=== PATIENT | female | born 1950 | race Caucasian/White ===

== ENCOUNTER → 2020-04-16 12:35 | Outpatient (CLI) | payer MEDICARE, OTHER, SELFPAY | PROVIDERS: PCP Student in an Organized Health Care Education/Training Program; Referring Provider Student in an Organized Health Care Education/Training Program; Visit Provider Student in an Organized Health Care Education/Training Program | DX: M85.832 Other specified disorders of bone density and structure, left forearm (principal); Z78.0 Asymptomatic menopausal state | CPT/HCPCS: 77080 ==

== ENCOUNTER → 2020-05-12 08:59 | Outpatient (CLI) | payer MEDICARE, OTHER, SELFPAY ==
--- NOTE | 2020-05-12 09:02 | DI.MG.S_ITS ---
BILATERAL DIGITAL SCREENING MAMMOGRAM 3D/2D WITH CAD: 05/12/2020 CLINICAL: Routine screening. Comparison is made to exams dated: 05/28/2018 mammogram - [facility], 11/04/2016 mammogram, and 12/17/2012 mammogram - [facility]. There are scattered fibroglandular elements in both breasts. Current study was also evaluated with a Computer Aided Detection (CAD) system. No significant masses, calcifications, or other findings are seen in either breast. There has been no significant interval change. IMPRESSION: NEGATIVE There is no mammographic evidence of malignancy. A 1 year screening mammogram is recommended. This exam was interpreted at Station ID: [id number]. NOTE: For mammograms, a report in lay terms will be sent to the patient. Approximately 15% of breast malignancies will not be visualized mammographically. In the management of a palpable breast mass, a negative mammogram must not discourage biopsy of a clinically suspicious lesion. Electronically Signed By: Ernie erazo/dominick:05/14/2020 07:55:11 letter sent: Normal Exam ACR BI-RADS Category 1: Negative [id number]
== END ==
PROVIDERS: PCP Student in an Organized Health Care Education/Training Program; Referring Provider Student in an Organized Health Care Education/Training Program; Visit Provider Student in an Organized Health Care Education/Training Program
DX: Z12.31 Encounter for screening mammogram for malignant neoplasm of breast (principal)
CPT/HCPCS: 77063; 77067

== ENCOUNTER → 2021-02-28 12:39 | Outpatient (CLI) | payer MEDICARE, OTHER, SELFPAY ==
--- NOTE | 2021-02-28 12:40 | DI.MRI.S_ITS ---
PROCEDURE: MR FOOT RT WO/W CON INDICATIONS: Lesion of plantar nerve, right lower limb TECHNIQUE: Noncontrast sagittal T1 spin echo and T2 fast spin echo with fat saturation, long-axis T1 spin echo and STIR, short-axis T1 spin echo with and without fat saturation, and short-axis T2 fast spin echo with fat saturation. After the administration of contrast, sagittal, long axis, and short axis T1 spin echo with fat saturation through the forefoot. COMPARISON: None. FINDINGS: Image quality: Excellent. Bones and joints: No acute trabecular bone injury. There is mild hallux valgus. Moderate degenerative changes are seen at the 1st metatarsophalangeal joint with associated cystic changes in the 1st metatarsal head and mild soft tissue bunion. Mild scattered degenerative changes are seen in the interphalangeal joints of the toes. Degenerative changes are also seen in the tarsometatarsal joints and the navicular cuneiform articulations. Mild degenerative changes are seen in the hallux sesamoids, which are not displaced. No intraosseous lesions. Soft tissues: Nonspecific soft tissue edema is seen at the dorsum of the foot. No enhancing lesions between the metatarsal heads to suggest Holley's neuromas. No rim-enhancing intermetatarsal bursal fluid collections are present. Mildly decreased T1 signal is seen plantar to the 2nd, 4th, and 5th metatarsal heads, consistent with chronic pressure related changes. The visualized plantar foot muscles demonstrate normal signal and bulk. Visualized flexor and extensor tendons appear intact, without tenosynovitis. A small nonenhancing 9 mm ganglion cyst is seen plantar to the proximal 3rd metatarsal. IMPRESSION: 1. No Holley's neuroma identified. 2. Hallux valgus with moderate degenerative changes at the 1st metatarsophalangeal joint. 3. Mild nonspecific soft tissue edema at the dorsum of the foot. 4. Small lobular ganglion cyst plantar to the proximal 3rd metatarsal. Dictated by: Tristen Dempsey M.D. on 02/28/2021 at 13:54 Approved by: Tristen Dempsey M.D. on 02/28/2021 at 14:04
== END ==
PROVIDERS: PCP Student in an Organized Health Care Education/Training Program; Referring Provider Podiatrist; Visit Provider Podiatrist
DX: M79.671 Pain in right foot (principal); G57.61 Lesion of plantar nerve, right lower limb; M20.11 Hallux valgus (acquired), right foot; R60.0 Localized edema; M67.471 Ganglion, right ankle and foot
CPT/HCPCS: 73720

== ENCOUNTER → 2024-08-01 09:47 | Outpatient (CLI) | payer MEDICARE, SELFPAY ==
[2024-08-01 10:42] LABS: Add Manual Diff / Slide Review NO; Basophils Absolute Auto 100 /uL (0-100); Basophils Percent Auto 1.2 % (0-2); Eosinophils Absolute Auto 100 /uL (0-450); Eosinophils Percent Auto 1.4 % (2-4); Hematocrit 37.6 % (36-46); Hemoglobin 12.6 g/dL (12.0-16.0); Lymphocytes Absolute Auto 1900 /uL (1100-4500); Lymphocytes Percent Auto 40.7 % (25-40); Mean Corpuscular HGB Conc 33.4 % (30-36); Mean Corpuscular Hemoglobin 28.3 PG (26-34); Mean Corpuscular Volume 84.8 fL (80-100); Monocytes Absolute Auto 300 /uL (0-900); Monocytes Percent Auto 5.7 % (3-14); Neutrophils Absolute Auto 2400 /uL (1500-7000); Platelet Count 275 X10^3/uL (150-400); Red Blood Cell Count 4.44 X10^6/uL (4.0-5.2); Red Cell Distribution Width 13.7 % (11.6-14.8); White Blood Cell Count 4.7 X10^3/uL (4.5-11.0)
[2024-08-01 11:06] LABS: Alanine Aminotransferase 29 IU/L (<35); Albumin 4.4 g/dL (3.5-5.0); Albumin Globulin Ratio 1.7 (1.0-2.8); Alkaline Phosphatase 34 U/L (38-126); Aspartate Aminotransferase 28 IU/L (14-36); BUN Creatinine Ratio 48.4 (6-22); Bilirubin Total 0.4 mg/dL (0.2-1.3); Blood Urea Nitrogen 31 mg/dL (7-17); Calcium 10.3 mg/dL (8.4-10.2); Carbon Dioxide 28 mmol/L (22-32); Chloride 102 mmol/L (98-107); Cholesterol 235 mg/dL (140-199); Estimated Glomerular Filt Rate > 60 mL/min (>60); Globulin 2.6 g/dL (1.7-4.1); Glucose 99 mg/dL (80-110); HDL Cholesterol 75 mg/dL (40-60); HEMOLYSIS < 15 (0-50); LDL Cholesterol Calculated 137 mg/dL (<100); Potassium 4.3 mmol/L (3.4-5.1); Sodium 138 mmol/L (137-145); Triglycerides 115 mg/dL (35-150)
[2024-08-01 11:11] LABS: HEMOLYSIS < 15 (0-50); Iron 110 ug/dL (37-170)
[2024-08-01 11:22] LABS: Percent Iron Saturation 36 % (15-50); Total Iron Binding Capacity 308 ug/dL (265-497); Transferrin 268 mg/dL (206-381)
[2024-08-01 11:24] LABS: Vitamin D 25 Hydroxy (D3) 39.1 ng/mL (30.0-100.0)
[2024-08-01 11:41] LABS: Ferritin 36 ng/mL (11-264)
[2024-08-02 20:08] LABS: Calcium 10.1 mg/dL (8.7-10.3); Parathyroid Hormone, Intact 54 pg/mL (15-65)
== END ==
PROVIDERS: PCP Family Medicine; Referring Provider Family Medicine; Visit Provider Family Medicine
DX: E83.52 Hypercalcemia (principal); I10 Essential (primary) hypertension; G47.33 Obstructive sleep apnea (adult) (pediatric); Z13.6 Encounter for screening for cardiovascular disorders
CPT/HCPCS: 36415; 80053; 80061; 82306; 82310; 82728; 83540; 83550; 83970; 85025

== ENCOUNTER → 2024-09-28 09:14 | Outpatient (CLI) | payer MEDICARE, SELFPAY ==
[2024-09-28 10:47] LABS: Alanine Aminotransferase 32 IU/L (<35); Albumin 4.5 g/dL (3.5-5.0); Albumin Globulin Ratio 1.6 (1.0-2.8); Alkaline Phosphatase 32 U/L (38-126); Aspartate Aminotransferase 32 IU/L (14-36); BUN Creatinine Ratio 32.3 (6-22); Bilirubin Total 0.4 mg/dL (0.2-1.3); Blood Urea Nitrogen 20 mg/dL (7-17); Calcium 10.9 mg/dL (8.4-10.2); Carbon Dioxide 30 mmol/L (22-32); Chloride 101 mmol/L (98-107); Estimated Glomerular Filt Rate > 60 mL/min (>60); Globulin 2.8 g/dL (1.7-4.1); Glucose 95 mg/dL (70-99); HEMOLYSIS < 15 (0-50); Potassium 4.3 mmol/L (3.4-5.1); Sodium 136 mmol/L (137-145); Total Protein 7.3 g/dL (6.3-8.2)
[2024-09-28 11:17] LABS: Ferritin 58 ng/mL (11-264)
== END ==
PROVIDERS: PCP Family Medicine; Referring Provider Family Medicine; Visit Provider Family Medicine
DX: E83.52 Hypercalcemia (principal); I10 Essential (primary) hypertension
CPT/HCPCS: 36415; 80053; 82728

== ENCOUNTER → 2024-09-30 09:04 | Outpatient (CLI) | payer MEDICARE, SELFPAY ==
[2024-09-30 10:19] LABS: Calcium 10.3 mg/dL (8.4-10.2)
[2024-09-30 10:38] LABS: T4 Total Thyroxine 7.91 ug/dL (5.5-11.0)
[2024-09-30 10:51] LABS: Thyroid Stimulating Hormone 2.32 uIU/mL (0.47-4.68)
[2024-10-01 09:09] LABS: Parathyroid Hormone Int 45 pg/mL (15-65)
[2024-10-01 21:11] LABS: Anti Thyroglobulin Antibody <1.0 IU/mL (0.0-0.9); Thyroid Peroxidase Antibodies 12 IU/mL (0-34)
== END ==
PROVIDERS: PCP Family Medicine; Referring Provider Family Medicine; Visit Provider Family Medicine
DX: E83.52 Hypercalcemia (principal); E61.1 Iron deficiency; I10 Essential (primary) hypertension; G47.33 Obstructive sleep apnea (adult) (pediatric)
CPT/HCPCS: 36415; 82310; 83970; 84436; 84443; 84481; 86376; 86800

== ENCOUNTER → 2024-10-12 06:46 | Outpatient (CLI) | payer MEDICARE, SELFPAY ==
--- NOTE | 2024-10-12 06:47 | DI.US.S_ITS ---
PROCEDURE: US THYROID INDICATIONS: Hypercalcemia, [place], iron def., HTN TECHNIQUE: Real-time scanning was performed of the thyroid gland, with image documentation. COMPARISON: None. FINDINGS: Thyroid: Right lobe measures 4.9 x 1.6 x 2.2 cm. Left lobe measures 5.2 x 1.9 x 1.6 cm. Isthmus is 0.4 cm thick. Echotexture is heterogeneous. Nodule number: 1 Location: Right inferior Size: 1.2 x 1.0 x 0.7 cm. Composition: Predominantly solid Echogenicity: Hypoechoic Shape: wider than tall. Margins: Smooth Echogenic foci: Punctate echogenic foci Total points: 7 ACR TI-RADS category: TI-RADS 5 Nodule number: 2 Location: Left inferior Size: 1.4 x 1.1 x 1.1 cm. Composition: Predominantly solid Echogenicity: Hypoechoic Shape: wider than tall. Margins: Lobulated Echogenic foci: Punctate echogenic foci Total points: 9 ACR TI-RADS category: TI-RADS 5 There is a 0.6 x 0.7 x 0.5 centimeter nodule at the posterior-inferior margin of the right lobe of the thyroid gland that may represent parathyroid gland or parathyroid adenoma. IMPRESSION: High suspicious (TI-RADS 5) 1.2 x 1.0 x 0.7 centimeter right thyroid nodule and 1.4 x 1.1 x 1.1 centimeter left thyroid nodule. Recommend fine needle aspiration based on criteria outlined below. 0.6 x 0.7 x 0.5 centimeter parathyroid gland or parathyroid adenoma at the posterior-inferior margin of the right thyroid. Recommend multiphase CT parathyroid scan. ACR TI-RADS definitions and recommendations: TI-RADS 1 (benign): 0 points. FNA not needed. TI-RADS 2 (not suspicious): 2 points. FNA not needed. TI-RADS 3: 3 points. * FNA if 2.5 cm or larger, follow up if 1.5 cm or larger (at 1, 3, and 5 years). TI-RADS 4: 4-6 points. * FNA if 1.5 cm or larger, follow up if 1 cm or larger (at 1, 2, 3, and 5 years). TI-RADS 5: 7 points or more. * FNA if 1 cm or larger, follow up if 0.5 cm or larger (every year for 5 years). Dictated by: Kaylin Roberto MD, PhD on 10/12/2024 at 9:53 Approved by: Kaylin Roberto MD, PhD on 10/12/2024 at 10:00
== END ==
PROVIDERS: PCP Family Medicine; Referring Provider Family Medicine; Visit Provider Family Medicine
DX: E04.2 Nontoxic multinodular goiter (principal); E83.52 Hypercalcemia; E61.1 Iron deficiency; I10 Essential (primary) hypertension; G47.33 Obstructive sleep apnea (adult) (pediatric); E87.8 Other disorders of electrolyte and fluid balance, not elsewhere classified
CPT/HCPCS: 76536

== ENCOUNTER → 2024-10-21 07:38 | Outpatient (CLI) | payer MEDICARE, SELFPAY ==
--- NOTE | 2024-10-21 07:39 | DI.CT.S_ITS ---
PROCEDURE: CT SOFT TISSUE NECK WO/W CON INDICATIONS: abnormal thyroid ultrasound TECHNIQUE: Before and after the administration of intravenous contrast, 2.0 mm axial sections acquired through the neck and down to the ramon. Additional 2.0 mm coronal and sagittal reformats were generated of the contrast enhanced images. For radiation dose reduction, the following was used: automated exposure control. COMPARISON: [facility], [place], US THYROID, 10/12/2024, 7:05. FINDINGS: Image quality: Excellent. Parathyroid/thyroid: There is no soft tissue density posterior to the right thyroid lobe demonstrating enhancement characteristics of parathyroid adenoma. Lymph nodes: No enlarged lymph nodes seen throughout the neck. Vessels: Visualized vasculature appears patent. Neck spaces: The oropharynx, nasopharynx, and pharynx demonstrate no mucosal lesions. The vocal cords, false vocal cords, pyriform sinuses, epiglottis, vallecula, and tongue base all appear normal. Extramucosal spaces appear unremarkable. Glands: The parotid and submandibular glands appear normal. Miscellaneous: Visualized lungs appear clear. Superficial soft tissues appear normal. Bones: No suspicious bony lesions. Visualized sinuses and mastoids appear unremarkable. IMPRESSION: No definitive finding of parathyroid adenoma. Dictated by: Tika Rosado M.D. on 10/22/2024 at 16:22 Approved by: Tika Rosado M.D. on 10/22/2024 at 16:25
== END ==
LOC: CT 07:39
PROVIDERS: PCP Family Medicine; Referring Provider Family Medicine; Visit Provider Family Medicine
DX: R93.89 Abnormal findings on diagnostic imaging of other specified body structures (principal)
CPT/HCPCS: 70492; Q9967

== ENCOUNTER → 2024-10-25 09:11 | Outpatient (CLI) | payer MEDICARE, SELFPAY ==
--- NOTE | 2024-10-25 09:41 | DI.ECHO.S_ITS ---
[facility] : : [address] : : [place] : : [address] : : Phone: [phone] Echocardiogram Report + + :Name: CARMEN CANDELARIA Study Date: 10/25/2024 Height: 63 in : :Hospital ReadingLocation: Weight: 202 lb : : Gender: Female BSA: 1.9 m2 : :: 1950 Age: 73 yrs BP: 161/69 mmHg: :Reason For Study: Hypertension : :Ordering Physician: JEFF, : :WENDY Lord Performed By: Khadra Taylor : :Referring: WENDY AGUILAR R : + + Interpretation Summary 1) Normal left ventricular thickness, size, wall motion, and systolic function (EF 60-65%). 2) Normal right ventricular size and function. 3) No significant valvular abnormalities. 4) No prior Echo available for comparison. Procedure: A two-dimensional transthoracic echocardiogram with color flow and Doppler was performed. The study quality was technically adequate. There is no prior echocardiogram noted for this patient. The heart rate ranged between 48-56 bpm during the study. Left Ventricle: The left ventricle is normal in size and wall thickness. The ejection fraction is estimated to be 60-65%. Left ventricular systolic function appears normal without focal wall motion abnormalities. Diastolic function could not be accurately assessed due to unobtainable data. Right Ventricle: The right ventricle grossly appears normal in size with probable normal systolic function. Atria: The left atrium is moderately dilated. Right atrial size is normal. The interatrial septum grossly appears intact with no obvious evidence for an atrial septal defect. Mitral Valve: The mitral valve is grossly normal. There is trace mitral regurgitation. Aortic Valve: The aortic valve is trileaflet. The aortic valve opens well. There is no aortic valve stenosis. There is no aortic regurgitation. Tricuspid Valve: The tricuspid valve leaflets are thin and pliable. There is a trace or physiologic amount of tricuspid regurgitation. Pulmonic Valve: The pulmonic valve leaflets are thin and pliable; valve motion is normal. There is a trace or physiologic amount of pulmonic regurgitation. Great Vessels: The aortic root is normal size. The ascending aorta is normal in size. The aortic arch is normal in size. The IVC is of normal diameter and collapses greater than 50% with a sniff. This suggests a low right atrial pressure of 3 mm Hg. Pericardium/ Pleura There is no pericardial effusion. There is no pleural effusion. MMode/2D Measurements & Calculations LVIDd: 5.2 cm LVOT diam: 2.2 cm LVIDs: 2.8 cm Ao root diam: 2.8 cm FS: 47.1 % asc Aorta Diam: 2.9 cm EPSS: 0.35 cm Ao Arch Diam (Prox Trans): 2.5 cm IVSd: 0.78 cm LVPWd: 0.71 cm LV huynh. diameter/BSA (cm/m^2): 2.7 LV sys. diameter/BSA (cm/m^2): 1.4 LA A2 area: 23.4 cm2 RA long axis: 4.7 cm LA A4 area: 19.1 cm2 RA area: 12.6 cm2 LA length (vol): 4.8 cm RA vol: 28.7 ml LA vol: 78.8 ml RA : 14.8 ml/m2 LA vol index: 40.6 ml/m2 IVC diam: 1.4 cm TAPSE: 2.5 cm Doppler Measurements & Calculations Ao V2 max: 156.4 cm/sec LVOT Max Gunnar: 89.4 cm/sec Ao V2 mean: 106.2 cm/sec LV V1 max P.2 mmHg Ao max P.8 mmHg LV V1 VTI: 22.4 cm Ao mean P.1 mmHg YASEMIN(I,D): 2.0 cm2 Ao V2 VTI: 41.2 cm YASEMIN(V,D): 2.1 cm2 sev ratio: 0.54 YASEMIN indexed to BSA (cm^2/m^2): 1.0 MV E max gunnar: 86.0 cm/sec PA V2 max: 81.0 cm/sec MV A max gunnar: 104.9 cm/sec PA V2 mean: 61.2 cm/sec MV E/A: 0.82 PA mean P.6 mmHg Med Peak E' Gunnar: 6.9 cm/sec PA pr(Accel): 10.5 mmHg E/E' med: 12.5 Lat Peak E' Gunnar: 7.2 cm/sec E/E' lat: 12.0 E/e' average: 12.3 MV dec time: 0.29 sec SV(LVOT): 83.5 ml Reading Physician:05:13 PM
== END ==
PROVIDERS: PCP Family Medicine; Referring Provider Family Medicine; Visit Provider Family Medicine
DX: I10 Essential (primary) hypertension (principal); G47.33 Obstructive sleep apnea (adult) (pediatric)
CPT/HCPCS: 93306

== ENCOUNTER → 2024-10-31 09:03 | Outpatient (CLI) | payer MEDICARE, SELFPAY ==
[2024-10-31 10:23] LABS: Alanine Aminotransferase 25 IU/L (<35); Albumin 4.4 g/dL (3.5-5.0); Albumin Globulin Ratio 1.6 (1.0-2.8); Alkaline Phosphatase 36 U/L (38-126); Aspartate Aminotransferase 28 IU/L (14-36); BUN Creatinine Ratio 31.1 (6-22); Bilirubin Total 0.3 mg/dL (0.2-1.3); Blood Urea Nitrogen 19 mg/dL (7-17); Calcium 10.4 mg/dL (8.4-10.2); Carbon Dioxide 27 mmol/L (22-32); Chloride 103 mmol/L (98-107); Estimated Glomerular Filt Rate > 60 mL/min (>60); Globulin 2.7 g/dL (1.7-4.1); Glucose 95 mg/dL (70-99); HEMOLYSIS < 15 (0-50); Potassium 4.7 mmol/L (3.4-5.1); Sodium 137 mmol/L (137-145); Total Protein 7.1 g/dL (6.3-8.2)
== END ==
PROVIDERS: PCP Family Medicine; Referring Provider Family Medicine; Visit Provider Family Medicine
DX: E83.52 Hypercalcemia (principal)
CPT/HCPCS: 36415; 80053

== ENCOUNTER → 2024-11-09 13:22 | Outpatient (CLI) | payer MEDICARE, SELFPAY ==
--- NOTE | 2024-11-09 | PATH_ITS ---
Note [facility] Accession Number: [id number] TESTS RESULT FLAG UNITS REF RANGE LAB Clinician Provided Cytology Information No. of containers..01 Other (Miscellaneous) No. of containers..00 Previously Prepared Cytology Slide Source: RIGHT THYROID NODULE DIAGNOSIS: RIGHT THYROID NODULE NEGATIVE FOR MALIGNANT CELLS. BETHESDA CATEGORY II. SPECIMEN CONSISTS OF SCANT, BENIGN FOLLICULAR CELLS, RARE HEMOSIDERIN-LADEN MACROPHAGES, ABUNDANT COLLOID, AND BLOOD. THIS PATTERN IS MOST CONSISTENT WITH FOLLICULAR NODULAR DISEASE. Pathologist ICD10: 01 E04.1 Signed out by: Evelina Shafer MD, Pathologist NPI- [id number] Performed by: Celi Jacome, Cotton Gin Yard Supervisor ([facility]) Gross description: 30 CC, RED, HAZY RECEIVED IN WHITE CAP CYTOLYT CONTAINER. RECEIVED 5 DRY FIXED SLIDES IN 2 SLIDE COFFINS. RECEIVED 5 ALCOHOL FIXED SLIDES IN 2 GREEN CAP COFFINS. RECEIVED 1 RNA VIAL. : 01/28/25 RZ /RZA 11/10/2024 1235 Local FLAG LEGEND: L-Low Normal,H-High Normal,LL-Alert Low,HH-Alert High <-Panic Low,>-Panic High,A-Abnormal,AA-Critical Abnormal Performed at: 01 =Z [employer], [place] [address] Be Oconnell MD, Specimen Comment: [id number] Performed at: 01 [facility] [address] [address], [place], [place] [id number] MD Be Oconnell MD Phone: [phone]
--- NOTE | 2024-11-09 | PATH_ITS ---
Note [facility] Accession Number: [id number] TESTS RESULT FLAG UNITS REF RANGE LAB Clinician Provided Cytology Information No. of containers..01 Other (Miscellaneous) No. of containers..02 Previously Prepared Cytology Slide Source: LEFT THYROID NODULE DIAGNOSIS: LEFT THYROID NODULE ATYPIA OF UNDETERMINED SIGNIFICANCE. BETHESDA CATEGORY III. ATYPIA OF UNDETERMINED SIGNIFIANCE - NUCLEAR ATYPIA. MOLECULAR STUDIES REQUESTED; RESULTS WILL BE REPORTED SEPARATELY. Pathologist ICD10: R89.6 Signed out by: Evelina Shafer MD, Pathologist NPI- [id number] Performed by: Wayne Palma, Clothing Room Supervisor ([facility]) Gross description: 30 CC, PINK, HAZY RECEIVED IN [employer] WHITE CAP CONTAINER. RZ RECIEVED 6 ALCOHOL FIXED SLIDES IN 2 GREEN CAP COFFINS. RECEIVED 6 DRY FIXED SLIDES IN 2 SLIDE COFFINS. RECEIVED 1 RNA VIAL. : 05/26/26 /RCASTILLO 11/10/2024 [facility] Local FLAG LEGEND: L-Low Normal,H-High Normal,LL-Alert Low,HH-Alert High <-Panic Low,>-Panic High,A-Abnormal,AA-Critical Abnormal Performed at: 01 =Z [employer] [address], [place] [address] Be Oconnell MD, Specimen Comment: [id number] Performed at: [address] [facility], [place], [place] [id number] MD Be Oconnell MD Phone: [phone]
--- NOTE | 2024-11-09 13:24 | DI.US.S_ITS ---
PROCEDURE: US FINE NEEDLE ASPIRATION INDICATIONS: RIGHT AND LEFT THYROID NODULES FINE NEEDLE ASPIRATION TECHNIQUE: The indications, alternatives, benefits, risks, and complications of the procedure were explained to the patient. Written informed consent was obtained and placed in the chart. The thyroid region was examined sonographically and a site was chosen for ultrasound guided percutaneous sampling. The skin was prepared and draped in the usual fashion, and anesthetized with 1% lidocaine infiltrated from the skin down to the thyroid gland. Multiple passes were then performed, with contents emptied into an appropriate pathology specimen container. A bandage was applied to the area of access at completion of the study. COMPARISON: Merged With [facility], CT, CT SOFT TISSUE NECK WO/W CON, 10/21/2024, 8:00. Merged With [facility], US, US THYROID, 10/12/2024, 7:05. FINDINGS: Location(s) of lesion(s) sampled: -Right inferior thyroid nodule. Previously measured 1.2 cm. -Left inferior thyroid nodule. Previously measured 1.4 cm. [place]: 25 and 22 gauge hypodermic needles. Number of passes: 6 Medications: 1% lidocaine for local anaesthesia. Complications: None. IMPRESSION: Successful ultrasound-guided thyroid nodule fine needle aspirations x2, with cytology results pending. Please see chart below for management recommendations based on cytology results. [facility] [facility] ReportingRecommendationsNon-diagnostic* Repeat US-guided FNA, with on-site cytology evaluation if possible. * Repeated non-diagnostic nodules without high suspicion US features: close observation vs surgical consult. * Consider surgery if nodule has high suspicion US features, grows >20% in 2 dimensions on followup, or patient has clinical risk factors for malignancy. Benign* If nodule has high suspicion US features: repeat US and FNA within 12 months. * If nodule has low to intermediate suspicion US features: repeat US at 12-24 months. If nodule grows (20% increase in at least 2 dimensions, with minimal increase of 2 mm or >50% change in volume), or development of new suspicious US features, then repeat FNA or continue followup. * If nodule has very low suspicion US features: followup US at >24 months. Atypia of undetermined significance, follicular lesion of undetermined significanceRepeat FNA, molecular testing, followup US, or surgical consult.Follicular neoplasm, suspicious for follicular neoplasmSurgical consult; also consider molecular testing. Suspicious for malignancySurgical consult.MalignantSurgical consult. Dictated by: Rajesh Fountain M.D. on 11/09/2024 at 17:33 Approved by: Rajesh Fountain M.D. on 11/09/2024 at 17:35
== END ==
LOC: US 13:23
PROVIDERS: PCP Family Medicine; Referring Provider Family Medicine; Visit Provider Radiology Diagnostic Radiology
DX: E04.2 Nontoxic multinodular goiter (principal); R93.89 Abnormal findings on diagnostic imaging of other specified body structures
CPT/HCPCS: 10005; 10006

== ENCOUNTER → 2025-03-24 15:09 | Outpatient (CLI) | payer MEDICARE, SELFPAY ==
--- NOTE | 2025-03-24 15:12 | DI.RAD.S_ITS ---
PROCEDURE: XR FOOT RT MIN 3V INDICATIONS: cow stepped on patient's foot on 03/18/25 TECHNIQUE: 3 views of the foot were acquired. COMPARISON: None. FINDINGS: Bones: Hallux valgus with accelerated degenerative change and bony bunion formation. Questionable fractures at the base of the 3rd and 4th metatarsals. Soft tissues: Significant dorsal midfoot edema. IMPRESSION: Questionable intra-articular fractures of the 3rd and 4th metatarsals. Consider CT for confirmation and evaluation of the Lisfranc joints. Dictated by: Isaac Weston M.D. on 03/25/2025 at 10:22 Approved by: Isaac Weston M.D. on 03/25/2025 at 10:24
== END ==
PROVIDERS: PCP Family Medicine; Referring Provider Family Medicine; Visit Provider Family Medicine
DX: M79.671 Pain in right foot (principal); M20.11 Hallux valgus (acquired), right foot; M21.611 Bunion of right foot; W55.29XA Other contact with cow, initial encounter
CPT/HCPCS: 73630

== ENCOUNTER → 2025-03-30 08:10 | Outpatient (CLI) | payer MEDICARE, SELFPAY ==
--- NOTE | 2025-03-30 08:11 | DI.CT.S_ITS ---
PROCEDURE: CT FOOT RIGHT WITHOUT CON INDICATIONS: Lisfranc Fracture TECHNIQUE: Noncontrast 1-1.5 mm axial sections acquired from above the tibiotalar joint to the bottom of the calcaneus, with coronal and sagittal reformats. COMPARISON: [facility], CR, XR FOOT RT MIN 3V, 03/24/2025, 15:20. FINDINGS: Image quality: Excellent. Bones: Alignment of right foot is anatomic. [id number] osteoarthritic changes are noted throughout right foot joints more notably involving TMT joints with joint space narrowing, subchondral sclerosis and dorsal marginal osteophyte formation. No acute fracture or dislocation. No suspicious intraosseous lesions. No CT evidence of metatarsal stress fractures. Well-defined plantar and dorsal calcaneal enthesophytes are seen. Small enthesophyte formation involving plantar and medial aspect of calcaneus is also seen. Soft tissues: There is no significant joint effusion or calcified intra- articular loose bodies. No abnormal calcifications are seen in left foot soft tissue. Amorphous calcifications are noted posterior and medial to the navicular bone suggestive of sequelae from remote injury versus small os navicularis. No gross full- thickness ankle tendon rupture. No abnormal widening of Lisfranc joint. IMPRESSION: 1. 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 No acute fracture or dislocation. Previous radiograph findings of radiolucencies involving 3rd and 4th metatarsal bases likely represent artifacts and/or nutrient vessels. No suspicious intraosseous lesion. 2. No gross right foot soft tissue abnormalities. 3. Other chronic findings as above. Dictated by: Sumeet Juarez M.D. on 03/30/2025 at 9:47 Approved by: Sumeet Juarez M.D. on 03/30/2025 at 9:55
== END ==
LOC: CT 08:11
PROVIDERS: PCP Family Medicine; Referring Provider Family Medicine; Visit Provider Family Medicine
DX: S92.301A Fracture of unspecified metatarsal bone(s), right foot, initial encounter for closed fracture (principal); M77.31 Calcaneal spur, right foot; W55.22XA Struck by cow, initial encounter
CPT/HCPCS: 73700

== ENCOUNTER → 2025-04-20 08:01 | Outpatient (CLI) | payer MEDICARE, SELFPAY ==
--- NOTE | 2025-04-20 08:02 | DI.MG.S_ITS ---
MM screening mammo BI: 04/20/2025. BI-RADS: 1 CLINICAL: 74-year old female for bilateral screening mammogram. Tyrer-Cuzick lifetime risk of 4.6%. No personal or first-degree family history of breast cancer. PRIOR EXAMS Outside films 03/30/2024, 12/05/2022, 10/14/2021, 05/12/2020, 05/28/2018. MAMMOGRAPHY TECHNIQUE: 2D and 3D (tomosynthesis) digital mammographic views obtained, with additional images as needed for full coverage. Current study was also evaluated with a Computer Aided Detection (CAD) system. DENSITY B. There are scattered areas of fibroglandular density. MAMMOGRAPHY FINDINGS Bilateral: No suspicious mass, asymmetry, microcalcification, or other abnormality seen. IMPRESSION: * No evidence of malignancy. RECOMMENDATIONS Bilateral * Annual screening mammography. OVERALL ASSESSMENT CATEGORY BI-RADS-1: Negative. The [employer] recommends annual screening mammography beginning at age 40 for women with average risk of breast cancer. ELECTRONICALLY SIGNED: Charlette Christensen M.D. on 04/24/2025 at 12:23:46 PM PT Interpreting Station ID: [id number]
== END ==
PROVIDERS: PCP Family Medicine; Referring Provider Family Medicine; Visit Provider Family Medicine
DX: Z12.31 Encounter for screening mammogram for malignant neoplasm of breast (principal)
CPT/HCPCS: 77063; 77067